=== PATIENT | male | born 1955 | race Two or more races ===

== ENCOUNTER 2024-02-10 03:59 | Emergency (ER) | payer MEDICARE, OTHER ==
[~2024-02-10] VITALS: Ht 167.6 cm; Wt 79.4 kg
[~2024-02-10 03:59] MED LIST: CEFT400V IV; NEOM1OIN15 TP; ONDA4TAB5 PO
[2024-02-10 04:13] VITALS: BP 121/62; TEMP 98; O2SAT 95
[2024-02-11] MEDS ORDERED: DOCU100C36 PO (02:17)
[2024-02-11] MEDS ORDERED: SIME80TA15 PO (02:17)
[2024-02-11] MEDS ORDERED: MIRT-73 PO (02:20)
[2024-02-11] MEDS ORDERED: OMEP20TA5 PO (02:24)
[2024-02-11] MEDS ORDERED: OMEP20CA15 PO (02:24)
[2024-02-11] MEDS ORDERED: INSU100V27 SQ (08:18)
[2024-02-11] MEDS ORDERED: BISA10SU11 RC (08:18)
[2024-02-11] MEDS ORDERED: ONDA-97 PO (08:18)
[2024-02-11] MEDS ORDERED: GABA-532 PO (08:18)
[2024-02-11] MEDS ORDERED: FOLI0.8T23 PO (08:18)
[2024-02-11] MEDS ORDERED: NA P133E RC (08:18)
[2024-02-11] MEDS ORDERED: IPRA3AMP23 IH (08:18)
[2024-02-11] MEDS ORDERED: AMIO200T5 PO (08:18)
[2024-02-11] MEDS ORDERED: ACET-73 PO (08:18)
== END 2024-02-10 06:57 ==
LOC: ER 04:01
DX: E11.649 Type 2 diabetes mellitus with hypoglycemia without coma (principal); E11.22 Type 2 diabetes mellitus with diabetic chronic kidney disease; N18.6 End stage renal disease; M46.20 Osteomyelitis of vertebra, site unspecified; Z99.2 Dependence on renal dialysis
CPT/HCPCS: 82962-TC

== ENCOUNTER 2024-02-10 19:34 | Inpatient (IN) | payer MEDICARE, OTHER ==
[~2024-02-10] VITALS: Ht 167.6 cm; Wt 70.8 kg
[2024-02-10] MEDS ORDERED: ONDANSETRON HCL/PF 4 MG/2 ML VIAL ONE (20:33)
[2024-02-10 20:36] LABS: BASOPHILS # (AUTO) 0.1 K/uL (0.0-0.2); BASOPHILS % (AUTO) 0.9 % (0.0-2.0); EOSINOPHILS # (AUTO) 0.8 K/uL (0.0-0.7); EOSINOPHILS % (AUTO) 8.3 % (0.0-6.0); HEMATOCRIT 23 % (39-51); HEMOGLOBIN 7.8 g/dL (13.5-17.5); LYMPHOCYTES % (AUTO) 10.6 % (20.0-44.0); MEAN CORPUSCULAR HEMOGLOBIN 30 PG (26.0-33.0); MEAN CORPUSCULAR HGB CONC 34 g/dl (31.0-36.0); MEAN CORPUSCULAR VOLUME 91 fL (80-96); MONOCYTES # (AUTO) 1.1 K/uL (0.1-1.30); MONOCYTES % (AUTO) 11.5 % (2.0-12.0); NEUTROPHILS # (AUTO) 6.8 K/uL (1.8-8.9); NEUTROPHILS % (AUTO) 68.7 % (43.0-81.0); PLATELET COUNT (AUTO) 400 K/uL (150-450); RED BLOOD CELL COUNT(AUTO) 2.56 MIL/uL (4.5-6.0); RED CELL DISTRIBUTION WIDTH 14.8 % (11.5-15.0); WHITE BLOOD COUNT (AUTO) 9.9 K/uL (4.3-11.0)
[2024-02-10 20:43] LABS: CREATININE 2.8 mg/dL (0.6-1.3)
[2024-02-10 20:47] LABS: INR 1.14 (0.91-1.10); PARTIAL THROMBOPLASTIN TIME 30.3 SEC (24.3-34.3); PROTHROMBIN TIME 11.6 SECS (9.2-11.1)
[2024-02-10 20:49] LABS: ALBUMIN 2.2 g/dL (3.4-5.0); BILIRUBIN,DIRECT 0.1 mg/dL (0.0-0.2); BILIRUBIN,TOTAL 0.4 mg/dL (0.2-1.0); TOTAL PROTEIN, SERUM 7.8 g/dL (6.4-8.2)
[2024-02-10] MEDS: ONDANSETRON HCL/PF 4 MG/2 ML VIAL IVP ONE (21:08)
[2024-02-10] MEDS ORDERED: PIPERACI/TAZO 3.375GM/D5W 50ML PB IV ONE (21:40)
[2024-02-10] MEDS: PIPERACILLIN /TAZOBACTAM 3.375 G in IV D5W 50 ML IV ONE (21:46)
[2024-02-10] MEDS ORDERED: POTASSIUM CHLORIDE 20 MEQ POWDER PACKET ONE (23:27)
[2024-02-10] MEDS: POTASSIUM CHLORIDE 20 MEQ TAB.PRT.SR PO ONE (23:33)
[2024-02-11 00:30] VITALS: BP 137/71; TEMP 98.2; O2SAT 95
[2024-02-11] MEDS ORDERED: METRONIDAZOLE 500MG/ NS 100ML 100 ML IV ONE (01:42)
[2024-02-11] MEDS: METRONIDAZOLE 500MG/ NS 100ML 500 MG in PREMIX 1 EA IV SCH (01:47)
[2024-02-11] MEDS ORDERED: SIME80TA15 PO (02:17)
[2024-02-11] MEDS ORDERED: DOCU100C36 PO (02:17)
[2024-02-11] MEDS ORDERED: MIRT-73 PO (02:20)
[2024-02-11] MEDS ORDERED: OMEP20TA5 PO (02:24)
[2024-02-11] MEDS ORDERED: OMEP20CA15 PO (02:24)
[2024-02-11 07:30] VITALS: BP 121/55; TEMP 99.1; O2SAT 93
[2024-02-11] MEDS: PIPERACILLIN /TAZOBACTAM 2.25 G in IV D5W 50 ML IV SCH (07:48)
[2024-02-11] MEDS ORDERED: ONDA-97 PO (08:18)
[2024-02-11] MEDS ORDERED: NA P133E RC (08:18)
[2024-02-11] MEDS ORDERED: FOLI0.8T23 PO (08:18)
[2024-02-11] MEDS ORDERED: ACET-73 PO (08:18)
[2024-02-11] MEDS ORDERED: INSU100V27 SQ (08:18)
[2024-02-11] MEDS ORDERED: BISA10SU11 RC (08:18)
[2024-02-11] MEDS ORDERED: AMIO200T5 PO (08:18)
[2024-02-11] MEDS ORDERED: GABA-532 PO (08:18)
[2024-02-11] MEDS ORDERED: IPRA3AMP23 IH (08:18)
[2024-02-11] MEDS ORDERED: SIMETHICONE 80 MG TAB.CHEW PO PRN (08:30)
[2024-02-11] MEDS ORDERED: MIRTAZAPINE SOLUTAB 15 MG/UDTABLET TAB.RAPDIS PO PRN (08:30)
[2024-02-11] MEDS ORDERED: BISACODYL SUPP (10 MG) 10 MG/SUPP.RECT SUPP.RECT RC PRN (08:30)
[2024-02-11] MEDS ORDERED: NA PHOS,M-B/NA PHOS,DI-BA 1 EA ENEMA RC PRN (08:30)
[2024-02-11] MEDS ORDERED: BACI/NEOM/POLY B OINT PKT 1 UDPKT PACKET TP SCH (09:00)
[2024-02-11] MEDS: GABAPENTIN 100 MG CAPSULE PO SCH (09:12)
[2024-02-11] MEDS: VIT B CMPLX 3/FA/VIT C/BIOTIN 1 TAB TABLET PO SCH (09:12)
[2024-02-11] MEDS: DOCUSATE SODIUM 100 MG CAPSULE PO SCH (09:13)
[2024-02-11] MEDS: AMIODARONE HCL 200 MG TABLET PO SCH (09:13)
[2024-02-11] MEDS: NEOMY SULF/BACITRAC ZN/POLY 15 GM TUBE TP SCH (09:55)
[2024-02-11] MEDS: VANCOMYCIN 1 GM in IV D5W 250ml IV ONE (11:57)
[2024-02-11 12:35] LABS: C-REACTIVE PROTEIN 16.27 mg/dL (0.0-0.30)
[2024-02-11] MEDS: VANCOMYCIN 750 MG in IV D5W 250 ML IV ONE (12:47)
[2024-02-11 12:54] LABS: ALBUMIN 2.1 g/dL (3.4-5.0); BILIRUBIN,TOTAL 0.4 mg/dL (0.2-1.0); CREATININE 3.3 mg/dL (0.6-1.3); MAGNESIUM 2.1 mg/dL (1.8-2.4); PHOSPHORUS 3.9 mg/dL (2.5-4.9); TOTAL PROTEIN, SERUM 7.9 g/dL (6.4-8.2)
[2024-02-11 13:32] LABS: BASOPHILS # (AUTO) 0.1 K/uL (0.0-0.2); BASOPHILS % (AUTO) 1.3 % (0.0-2.0); EOSINOPHILS # (AUTO) 0.8 K/uL (0.0-0.7); EOSINOPHILS % (AUTO) 7.3 % (0.0-6.0); HEMATOCRIT 22 % (39-51); HEMOGLOBIN 7.3 g/dL (13.5-17.5); LYMPHOCYTES # (AUTO) 1.6 K/uL (0.8-4.8); LYMPHOCYTES % (AUTO) 14.8 % (20.0-44.0); MEAN CORPUSCULAR HEMOGLOBIN 30 PG (26.0-33.0); MEAN CORPUSCULAR HGB CONC 34 g/dl (31.0-36.0); MEAN CORPUSCULAR VOLUME 89 fL (80-96); MONOCYTES # (AUTO) 1.2 K/uL (0.1-1.30); MONOCYTES % (AUTO) 11.2 % (2.0-12.0); NEUTROPHILS # (AUTO) 7.2 K/uL (1.8-8.9); NEUTROPHILS % (AUTO) 65.4 % (43.0-81.0); PLATELET COUNT (AUTO) 406 K/uL (150-450); RED BLOOD CELL COUNT(AUTO) 2.43 MIL/uL (4.5-6.0); RED CELL DISTRIBUTION WIDTH 15.1 % (11.5-15.0)
[2024-02-11] MEDS: ZOSYN IVPB 3.375 G in IV D5W 50ml IV SCH (13:55)
[2024-02-11 16:00] VITALS: BP 120/68; TEMP 98.6; O2SAT 96
[2024-02-11] MEDS: ALBUMIN 25% 25 GM in PREMIX 1 EA IV PRN (16:49)
[2024-02-11 19:55] LABS: HIV-1 p24 ANTIGEN NON REACTIVE (NONREACTIVE); HIV-1/2 ANTIBODY NON REACTIVE (NONREACTIVE)
[2024-02-11 20:00] VITALS: BP 113/85; TEMP 97.9; O2SAT 94
[2024-02-12] VITALS (8 sets, daily range): BP systolic 105–125; BP diastolic 52–62; TEMP 97.5–99; O2SAT 96–99
[2024-02-12] MEDS: Z GUARD REMEDY 4 OZ OINT TP PRN (09:08)
[2024-02-12 09:13] LABS: BASOPHILS # (AUTO) 0.1 K/uL (0.0-0.2); BASOPHILS % (AUTO) 0.8 % (0.0-2.0); EOSINOPHILS % (AUTO) 11.9 % (0.0-6.0); LYMPHOCYTES # (AUTO) 1.3 K/uL (0.8-4.8); LYMPHOCYTES % (AUTO) 15.5 % (20.0-44.0); MEAN CORPUSCULAR HEMOGLOBIN 30 PG (26.0-33.0); MEAN CORPUSCULAR HGB CONC 34 g/dl (31.0-36.0); MEAN CORPUSCULAR VOLUME 89 fL (80-96); MONOCYTES % (AUTO) 11.8 % (2.0-12.0); NEUTROPHILS # (AUTO) 4.9 K/uL (1.8-8.9); PLATELET COUNT (AUTO) 338 K/uL (150-450); RED BLOOD CELL COUNT(AUTO) 2.23 MIL/uL (4.5-6.0); WHITE BLOOD COUNT (AUTO) 8.1 K/uL (4.3-11.0)
[2024-02-12 09:34] LABS: CALCIUM, SERUM 8.8 mg/dL (8.5-10.1); CREATININE 2.1 mg/dL (0.6-1.3); POTASSIUM 3.4 mmol/L (3.5-5.1)
[2024-02-12 10:17] LABS: HEMATOCRIT 20 % (39-51); HEMOGLOBIN 6.8 g/dL (13.5-17.5)
[2024-02-12] MEDS: POTASSIUM CHLORIDE 20 MEQ TAB.PRT.SR PO SCH (10:37)
[2024-02-12 11:07] LABS: OCCULT BLOOD STOOL NEGATIVE (NEGATIVE)
[2024-02-12 11:18] LABS: EOSINOPHILS % (MANUAL) 9 % (0-4); LYMPHOCYTES % (MANUAL) 17 % (16-48); MONOCYTES % (MANUAL) 7 % (0-11.0); NEUTROPHILS % (MANUAL) 67 (42-76)
[2024-02-12 11:19] LABS: ANISOCYTOSIS 1+; PLATELET ESTIMATE ADEQUATE
[2024-02-12] MEDS ORDERED: VANCOMYCIN 750 MG in IV D5W 250 ML IV SCH (12:00)
[2024-02-12 13:55] LABS: THYROID STIMULATING HORMONE 2.57 uIU/mL (0.358-3.74)
[2024-02-12 22:17] LABS: BASOPHILS # (AUTO) 0.1 K/uL (0.0-0.2); BASOPHILS % (AUTO) 0.9 % (0.0-2.0); EOSINOPHILS # (AUTO) 1.1 K/uL (0.0-0.7); EOSINOPHILS % (AUTO) 12.4 % (0.0-6.0); HEMATOCRIT 25 % (39-51); HEMOGLOBIN 8.3 g/dL (13.5-17.5); LYMPHOCYTES # (AUTO) 1.7 K/uL (0.8-4.8); LYMPHOCYTES % (AUTO) 19.2 % (20.0-44.0); MEAN CORPUSCULAR HEMOGLOBIN 30 PG (26.0-33.0); MEAN CORPUSCULAR HGB CONC 34 g/dl (31.0-36.0); MEAN CORPUSCULAR VOLUME 89 fL (80-96); MONOCYTES # (AUTO) 1.2 K/uL (0.1-1.30); MONOCYTES % (AUTO) 13.6 % (2.0-12.0); NEUTROPHILS # (AUTO) 4.8 K/uL (1.8-8.9); NEUTROPHILS % (AUTO) 53.9 % (43.0-81.0); PLATELET COUNT (AUTO) 323 K/uL (150-450); RED BLOOD CELL COUNT(AUTO) 2.76 MIL/uL (4.5-6.0); RED CELL DISTRIBUTION WIDTH 14.8 % (11.5-15.0); WHITE BLOOD COUNT (AUTO) 8.9 K/uL (4.3-11.0)
[2024-02-13] MEDS: ONDANSETRON HCL/PF 4 MG/2 ML VIAL IVP PRN (00:38)
[2024-02-13 01:28] LABS: OCCULT BLOOD STOOL NEGATIVE (NEGATIVE)
[2024-02-13 06:07] LABS: HEPATITIS B SURFACE AB Non Reactive (.)
[2024-02-13 07:00] VITALS: BP 155/69; TEMP 97.5; O2SAT 97
[2024-02-13 11:07] LABS: FOLIC ACID 19.9 ng/mL (>3.0)
[2024-02-13] MEDS: ZOSYN IVPB 2.25 G in IV D5W 50ml IV SCH (12:47)
[2024-02-13 16:00] VITALS: BP 143/61; TEMP 98.7; O2SAT 96
[2024-02-13 20:10] VITALS: BP 147/62; TEMP 98.4; O2SAT 97
[2024-02-13] MEDS: ACETAMINOPHEN 325 MG TABLET PO PRN (20:20)
[2024-02-14 08:00] VITALS: BP 141/73; TEMP 98.8; O2SAT 96
[2024-02-14] MEDS: PANTOPRAZOLE 40 MG TABLET.DR PO SCH (09:35)
[2024-02-14 11:03] LABS: BASOPHILS # (AUTO) 0.1 K/uL (0.0-0.2); BASOPHILS % (AUTO) 0.7 % (0.0-2.0); EOSINOPHILS # (AUTO) 1.4 K/uL (0.0-0.7); EOSINOPHILS % (AUTO) 13.9 % (0.0-6.0); HEMATOCRIT 25 % (39-51); HEMOGLOBIN 8.7 g/dL (13.5-17.5); LYMPHOCYTES # (AUTO) 1.3 K/uL (0.8-4.8); LYMPHOCYTES % (AUTO) 12.6 % (20.0-44.0); MEAN CORPUSCULAR HEMOGLOBIN 30 PG (26.0-33.0); MEAN CORPUSCULAR HGB CONC 34 g/dl (31.0-36.0); MEAN CORPUSCULAR VOLUME 88 fL (80-96); MONOCYTES % (AUTO) 9.3 % (2.0-12.0); NEUTROPHILS # (AUTO) 6.5 K/uL (1.8-8.9); NEUTROPHILS % (AUTO) 63.5 % (43.0-81.0); PLATELET COUNT (AUTO) 339 K/uL (150-450); RED BLOOD CELL COUNT(AUTO) 2.87 MIL/uL (4.5-6.0); WHITE BLOOD COUNT (AUTO) 10.3 K/uL (4.3-11.0)
[2024-02-14 11:17] LABS: CALCIUM, SERUM 9.5 mg/dL (8.5-10.1); CREATININE 3.4 mg/dL (0.6-1.3); MAGNESIUM 2.1 mg/dL (1.8-2.4); PHOSPHORUS 3.3 mg/dL (2.5-4.9)
[2024-02-14] MEDS: PIPERACILLIN /TAZOBACTAM 2.25 G in IV D5W 50 ML IV SCH (12:23)
[2024-02-14 16:00] VITALS: BP 138/62; TEMP 99.7; O2SAT 98
[2024-02-14 20:00] VITALS: BP 147/63; TEMP 98.6; O2SAT 92
[2024-02-14] MEDS ORDERED: MUPIROCIN OINT 2% 22 GM TUBE ONE (21:38)
[2024-02-15 07:11] LABS: CALCIUM, SERUM 9.4 mg/dL (8.5-10.1); CREATININE 4.2 mg/dL (0.6-1.3)
[2024-02-15 08:00] VITALS: BP 161/77; TEMP 97.9; O2SAT 96
[2024-02-15] MEDS: MUPIROCIN OINT 2% 22 GM TUBE NS SCH (08:47)
[2024-02-15 16:00] VITALS: BP 128/65; TEMP 98; O2SAT 97
[2024-02-15 20:00] VITALS: BP 136/81; TEMP 97.5; O2SAT 93
[2024-02-16 06:59] LABS: CALCIUM, SERUM 9.7 mg/dL (8.5-10.1); CREATININE 2.6 mg/dL (0.6-1.3); POTASSIUM 3.5 mmol/L (3.5-5.1)
[2024-02-16 08:00] VITALS: BP 134/67; TEMP 98.4; O2SAT 100
[2024-02-16] MEDS: VANCOMYCIN 500 MG in IV D5W 100 ML IV PRN (09:04)
[2024-02-16 16:00] VITALS: BP 148/60; TEMP 98.6; O2SAT 100
[2024-02-17 06:53] LABS: BASOPHILS # (AUTO) 0.1 K/uL (0.0-0.2); EOSINOPHILS # (AUTO) 1.2 K/uL (0.0-0.7); EOSINOPHILS % (AUTO) 12.8 % (0.0-6.0); HEMATOCRIT 27 % (39-51); HEMOGLOBIN 9.1 g/dL (13.5-17.5); LYMPHOCYTES # (AUTO) 2.1 K/uL (0.8-4.8); LYMPHOCYTES % (AUTO) 21.8 % (20.0-44.0); MEAN CORPUSCULAR HEMOGLOBIN 31 PG (26.0-33.0); MEAN CORPUSCULAR HGB CONC 34 g/dl (31.0-36.0); MEAN CORPUSCULAR VOLUME 89 fL (80-96); MONOCYTES % (AUTO) 10.1 % (2.0-12.0); NEUTROPHILS # (AUTO) 5.2 K/uL (1.8-8.9); NEUTROPHILS % (AUTO) 54.3 % (43.0-81.0); PLATELET COUNT (AUTO) 319 K/uL (150-450); RED BLOOD CELL COUNT(AUTO) 2.99 MIL/uL (4.5-6.0); RED CELL DISTRIBUTION WIDTH 14.9 % (11.5-15.0); WHITE BLOOD COUNT (AUTO) 9.6 K/uL (4.3-11.0)
[2024-02-17 07:11] LABS: CALCIUM, SERUM 9.1 mg/dL (8.5-10.1); CREATININE 3.6 mg/dL (0.6-1.3); POTASSIUM 3.2 mmol/L (3.5-5.1)
[2024-02-17] MEDS: HYDROCODONE/APAP 5/325MG TABLET PO PRN (10:04)
[2024-02-17 16:00] VITALS: BP 140/66; TEMP 97.5; O2SAT 100
[2024-02-17 20:00] VITALS: BP 147/73; TEMP 98.4; O2SAT 98
[2024-02-18] MEDS ORDERED: cetrizine 10 MG TABLET PO PRN (08:30)
[2024-02-18 20:00] VITALS: BP 119/72; TEMP 98.4; O2SAT 94
[2024-02-19 07:30] VITALS: BP 153/67; TEMP 98.2; O2SAT 96
[2024-02-19 16:07] VITALS: BP 137/62; TEMP 98.1; O2SAT 97
== END 2024-02-19 18:23 | DRG 371 ==
LOC: ER 19:37 → TELE 23:17 → MED 23:30
PROVIDERS: ADMIT Nurse Practitioner Family; ATTEND Nurse Practitioner Acute Care
PROC: 5A1D70Z Performance of Urinary Filtration, Intermittent, Less than 6 Hours Per Day (ICD-10-PCS; 2024-02-11)
PROC: 30233N1 Transfusion of Nonautologous Red Blood Cells into Peripheral Vein, Percutaneous Approach (ICD-10-PCS; principal; 2024-02-12)
DX: A04.9 Bacterial intestinal infection, unspecified (principal); G92.8 Other toxic encephalopathy; K68.12 Psoas muscle abscess; N18.6 End stage renal disease; I12.0 Hypertensive chronic kidney disease with stage 5 chronic kidney disease or end stage renal disease; M46.26 Osteomyelitis of vertebra, lumbar region; E46 Unspecified protein-calorie malnutrition; K86.1 Other chronic pancreatitis; M46.46 Discitis, unspecified, lumbar region; E11.69 Type 2 diabetes mellitus with other specified complication; Z99.2 Dependence on renal dialysis; E87.6 Hypokalemia; E11.22 Type 2 diabetes mellitus with diabetic chronic kidney disease; N40.0 Benign prostatic hyperplasia without lower urinary tract symptoms; R62.7 Adult failure to thrive; Z79.4 Long term (current) use of insulin; Z79.51 Long term (current) use of inhaled steroids; Z79.899 Other long term (current) drug therapy; D63.8 Anemia in other chronic diseases classified elsewhere; E78.5 Hyperlipidemia, unspecified; G89.29 Other chronic pain; E88.09 Other disorders of plasma-protein metabolism, not elsewhere classified; I48.91 Unspecified atrial fibrillation; K80.20 Calculus of gallbladder without cholecystitis without obstruction; M47.819 Spondylosis without myelopathy or radiculopathy, site unspecified; M48.04 Spinal stenosis, thoracic region; M48.02 Spinal stenosis, cervical region; M60.9 Myositis, unspecified; M89.8X9 Other specified disorders of bone, unspecified site; Z78.1 Physical restraint status; Z79.01 Long term (current) use of anticoagulants; Z86.61 Personal history of infections of the central nervous system; Z86.73 Personal history of transient ischemic attack (TIA), and cerebral infarction without residual deficits; Z22.322 Carrier or suspected carrier of Methicillin resistant Staphylococcus aureus
CPT/HCPCS: 36415; 70450-TC; 71045-TC; 72141-TC; 72146-TC; 72148-TC; 80048-TC; 80053-TC; 80061-TC; 80076-TC; 80202-TC; 82272-TC; 82607-TC; 82962-TC; 83690-TC; 83735-TC; 83921; 84100-TC; 84425; 84443-TC; 85025-TC; 85652-TC; 85730-TC; 86140-TC; 86706; 86803; 86850-TC; 87040-TC; 87081-TC; 87340; 87806; 89055; 90935-TC; 93307-TC; A4216; A4223; G0378; J2405; J2543; J3370; J3371; J7030; J7050; J7060; J7070; P9016; P9047

== ENCOUNTER 2024-03-06 23:44 | Inpatient (IN) | payer MEDICARE, OTHER ==
[~2024-03-06] VITALS: Ht 152.4 cm; Wt 55.8 kg
[~2024-03-06 23:44] MED LIST changes: +ACET-73 PO; +AMIO200T5 PO; +BISA10SU11 RC; +DOCU100C36 PO; +FOLI0.8T23 PO; +GABA-532 PO; +INSU100V27 SQ; +IPRA3AMP23 IH; +MIRT-73 PO; +NA P133E RC; +OMEP20TA5 PO; +ONDA-97 PO; +SIME80TA15 PO
[2024-03-07] VITALS (8 sets, daily range): BP systolic 124–162; BP diastolic 83–98; TEMP 97.5–99.1; O2SAT 93–98
[2024-03-07] MEDS ORDERED: MAG HYDROX/AL HYDROX/SIMETH 30 ML UDC PO PRN (02:30)
[2024-03-07] MEDS ORDERED: ZOLPIDEM TARTRATE 5 MG TABLET PO PRN (02:30)
[2024-03-07] MEDS ORDERED: HYDROCODONE/APAP 5/325MG TABLET PO PRN (02:30)
[2024-03-07] MEDS ORDERED: ALBUTEROL FS 2.5 MG/3 ML VIAL.NEB NEB PRN ×2 (02:30→15:30)
[2024-03-07] MEDS ORDERED: IPRATROPIUM NEB FS 0.5 MG/2.5 ML AMPUL.NEB NEB PRN ×2 (02:30→15:30)
[2024-03-07] MEDS ORDERED: MAGNESIUM HYDROXIDE 30 ML UDC PO PRN (02:30)
[2024-03-07] MEDS: PANTOPRAZOLE 40 MG TABLET.DR PO SCH (07:30)
[2024-03-07] MEDS ORDERED: PANT40TA2 PO (07:38)
[2024-03-07] MEDS ORDERED: CEFE2VIA3 IV (07:38)
[2024-03-07] MEDS ORDERED: CETI10TA14 PO (07:38)
[2024-03-07] MEDS ORDERED: HYDR-4303 PO (07:38)
[2024-03-07] MEDS ORDERED: CHOL100043 PO (07:38)
[2024-03-07] MEDS ORDERED: ACET-868 PO (07:38)
[2024-03-07] MEDS ORDERED: ASPI-1169 PO (07:38)
[2024-03-07] MEDS ORDERED: ATOR80TA PO (07:38)
[2024-03-07] MEDS ORDERED: VANC500V IV (07:38)
[2024-03-07 09:32] LABS: BASOPHILS # (AUTO) 0.1 K/uL (0.0-0.2); BASOPHILS % (AUTO) 0.9 % (0.0-2.0); EOSINOPHILS # (AUTO) 1.1 K/uL (0.0-0.7); EOSINOPHILS % (AUTO) 13.1 % (0.0-6.0); HEMATOCRIT 36 % (39-51); HEMOGLOBIN 11.7 g/dL (13.5-17.5); LYMPHOCYTES # (AUTO) 1.5 K/uL (0.8-4.8); LYMPHOCYTES % (AUTO) 18.2 % (20.0-44.0); MEAN CORPUSCULAR HEMOGLOBIN 31 PG (26.0-33.0); MEAN CORPUSCULAR HGB CONC 33 g/dl (31.0-36.0); MEAN CORPUSCULAR VOLUME 94 fL (80-96); MONOCYTES # (AUTO) 0.6 K/uL (0.1-1.30); MONOCYTES % (AUTO) 6.9 % (2.0-12.0); NEUTROPHILS # (AUTO) 5.1 K/uL (1.8-8.9); NEUTROPHILS % (AUTO) 60.9 % (43.0-81.0); PLATELET COUNT (AUTO) 434 K/uL (150-450); RED BLOOD CELL COUNT(AUTO) 3.79 MIL/uL (4.5-6.0); RED CELL DISTRIBUTION WIDTH 18.3 % (11.5-15.0); WHITE BLOOD COUNT (AUTO) 8.3 K/uL (4.3-11.0)
[2024-03-07 09:51] LABS: CALCIUM, SERUM 9.4 mg/dL (8.5-10.1); CREATININE 3.1 mg/dL (0.6-1.3); POTASSIUM 4.1 mmol/L (3.5-5.1)
[2024-03-07] MEDS ORDERED: ANESTHESIA TRAY IN PYXIS 1 EA TRAY MC ONE ×2 (10:14→12:25)
[2024-03-07] MEDS ORDERED: HEPARIN SODIUM, PORCINE 1,000 UNIT/ML VIAL ONE (10:14)
[2024-03-07] MEDS ORDERED: LIDOCAINE 1% INJ 50 ML MDV IJ ONE (10:15)
[2024-03-07 10:33] LABS: INR 1.15 (0.91-1.10); PARTIAL THROMBOPLASTIN TIME 32.1 SEC (24.3-34.3); PROTHROMBIN TIME 12.1 SECS (9.2-11.1)
[2024-03-07] MEDS ORDERED: DEXTROSE 50%-WATER 50 ML DISP.SYRIN IV PRN (13:30)
[2024-03-07 13:53] LABS: APPEARANCE,URINE CLEAR (CLEAR); BILIRUBIN,URINE NEGATIVE (NEGATIVE); BLOOD, URINE 2+ Ery/uL (NEGATIVE); COLOR,URINE YELLOW (YELLOW); KETONES,URINE NEGATIVE (NEGATIVE); LEUKOCYTE ESTERASE ,URINE 2+ (NEGATIVE); NITRITE, URINE NEGATIVE (NEGATIVE); PH,URINE 8.5 (5.0-8.0); PROTEIN,URINE 2+ mg/dl (NEGATIVE); UGLUCOSE NEGATIVE (NEGATIVE); UROBILINOGEN,URINE 0.2 EU/dL (0.2)
[2024-03-07 14:04] LABS: ADD URINE CULTURE YES; BACTERIA,URINE Many /HPF (None Seen); SQUAMOUS EPITHELIAL CELL,UR Rare /HPF (None Seen); WBC,URINE TOO NUMEROUS TO COUN /HPF (0-3)
[2024-03-07] MEDS ORDERED: SIMETHICONE 80 MG TAB.CHEW PO PRN (15:00)
[2024-03-07] MEDS ORDERED: CEFEPIME 2 GM VIAL IV SCH (15:00)
[2024-03-07] MEDS ORDERED: Medication Not On Formulary EA (Ipratropium/Albuterol Sulfate (Duoneb 2.5-0.5 Mg/3 Ml So IH PRN (15:00)
[2024-03-07] MEDS: VANCOMYCIN 1 GM in IV D5W 250ml IV ONE (15:09)
[2024-03-07] MEDS: BLOOD SUGAR DIAGNOSTIC 1 EACH STRIP IN SCH (16:58)
[2024-03-07] MEDS: INSULIN REGULAR, HUMAN 100 UNIT/ML 3 ML VIAL SQ PRN (17:02)
[2024-03-07] MEDS: ATORVASTATIN 40 MG TABLET PO SCH (21:39)
[2024-03-07] MEDS: MIRTAZAPINE SOLUTAB 15 MG/UDTABLET TAB.RAPDIS PO SCH (21:39)
[2024-03-07] MEDS: HEPARIN SODIUM, PORCINE 5000 UNITS/1 ML VIAL SQ SCH (21:40)
[2024-03-08] MEDS: Z GUARD REMEDY 4 OZ OINT TP PRN (05:51)
[2024-03-08] MEDS ORDERED: VANCOMYCIN POST DIALYSIS 500MG IV PRN (06:00)
[2024-03-08 06:32] LABS: PHOSPHORUS 2.2 mg/dL (2.5-4.9); POTASSIUM 3.3 mmol/L (3.5-5.1)
[2024-03-08 06:37] LABS: BASOPHILS # (AUTO) 0.1 K/uL (0.0-0.2); BASOPHILS % (AUTO) 0.7 % (0.0-2.0); EOSINOPHILS % (AUTO) 0.3 % (0.0-6.0); HEMATOCRIT 31 % (39-51); HEMOGLOBIN 10.3 g/dL (13.5-17.5); LYMPHOCYTES # (AUTO) 1.7 K/uL (0.8-4.8); MEAN CORPUSCULAR HEMOGLOBIN 31 PG (26.0-33.0); MEAN CORPUSCULAR HGB CONC 34 g/dl (31.0-36.0); MEAN CORPUSCULAR VOLUME 94 fL (80-96); MONOCYTES # (AUTO) 0.8 K/uL (0.1-1.30); MONOCYTES % (AUTO) 9.1 % (2.0-12.0); NEUTROPHILS % (AUTO) 69.9 % (43.0-81.0); PLATELET COUNT (AUTO) 391 K/uL (150-450); RED BLOOD CELL COUNT(AUTO) 3.28 MIL/uL (4.5-6.0); RED CELL DISTRIBUTION WIDTH 18.1 % (11.5-15.0); WHITE BLOOD COUNT (AUTO) 8.6 K/uL (4.3-11.0)
[2024-03-08 08:00] VITALS: BP 160/72; TEMP 99.3; O2SAT 99
[2024-03-08] MEDS: DOCUSATE SODIUM 100 MG CAPSULE PO SCH (08:53)
[2024-03-08] MEDS: CHOLECALCIFEROL 1,000 UNIT TABLET (VIT D3) PO SCH (08:53)
[2024-03-08] MEDS: ASPIRIN 81 MG TAB.CHEW PO SCH (08:53)
[2024-03-08] MEDS: AMIODARONE HCL 200 MG TABLET PO SCH (08:53)
[2024-03-08] MEDS: POTASSIUM CHLORIDE 20 MEQ TAB.PRT.SR PO SCH (09:53)
[2024-03-08 16:00] VITALS: BP 135/69; TEMP 99.4; O2SAT 99
[2024-03-08] MEDS: K PHOS NEUTRAL 250 MG TABLET PO ONE (16:11)
[2024-03-08 20:00] VITALS: BP 151/71; TEMP 98.8; O2SAT 100
[2024-03-08 20:33] VITALS: BP 151/71; TEMP 98.8; O2SAT 100
[2024-03-08] MEDS: CEFEPIME 2 GM in IV D5W 100 ML IV SCH (21:08)
[2024-03-09 07:01] LABS: BASOPHILS # (AUTO) 0.1 K/uL (0.0-0.2); BASOPHILS % (AUTO) 1.1 % (0.0-2.0); EOSINOPHILS # (AUTO) 0.8 K/uL (0.0-0.7); EOSINOPHILS % (AUTO) 8.9 % (0.0-6.0); HEMATOCRIT 28 % (39-51); HEMOGLOBIN 9.1 g/dL (13.5-17.5); LYMPHOCYTES # (AUTO) 1.9 K/uL (0.8-4.8); LYMPHOCYTES % (AUTO) 20.9 % (20.0-44.0); MEAN CORPUSCULAR HEMOGLOBIN 31 PG (26.0-33.0); MEAN CORPUSCULAR HGB CONC 33 g/dl (31.0-36.0); MEAN CORPUSCULAR VOLUME 93 fL (80-96); MONOCYTES # (AUTO) 0.8 K/uL (0.1-1.30); MONOCYTES % (AUTO) 9.5 % (2.0-12.0); NEUTROPHILS # (AUTO) 5.3 K/uL (1.8-8.9); NEUTROPHILS % (AUTO) 59.6 % (43.0-81.0); PLATELET COUNT (AUTO) 389 K/uL (150-450); RED BLOOD CELL COUNT(AUTO) 2.97 MIL/uL (4.5-6.0); WHITE BLOOD COUNT (AUTO) 8.9 K/uL (4.3-11.0)
[2024-03-09 07:50] LABS: CALCIUM, SERUM 9.2 mg/dL (8.5-10.1); CREATININE 3.1 mg/dL (0.6-1.3); MAGNESIUM 2.1 mg/dL (1.8-2.4); PHOSPHORUS 3.2 mg/dL (2.5-4.9); POTASSIUM 3.2 mmol/L (3.5-5.1)
[2024-03-09 08:00] VITALS: BP 160/75; TEMP 98.6; O2SAT 100
[2024-03-09] MEDS: GABAPENTIN 100 MG CAPSULE PO SCH (10:17)
[2024-03-09] MEDS: cetrizine 10 MG TABLET PO PRN (10:23)
[2024-03-09 10:33] LABS: THYROID STIMULATING HORMONE 1.94 uIU/mL (0.358-3.74)
[2024-03-09] MEDS: ONDANSETRON HCL/PF 4 MG/2 ML VIAL IVP PRN (11:59)
[2024-03-09 20:00] VITALS: BP 138/70; TEMP 98.5; O2SAT 100
[2024-03-10 06:47] LABS: CALCIUM, SERUM 9.4 mg/dL (8.5-10.1); CREATININE 2.4 mg/dL (0.6-1.3); POTASSIUM 4.2 mmol/L (3.5-5.1)
[2024-03-10 08:00] VITALS: BP 158/92; TEMP 98.1; O2SAT 100
[2024-03-10 16:00] VITALS: BP 148/79; TEMP 98.8; O2SAT 100
[2024-03-10 20:00] VITALS: BP 155/75; TEMP 97.9; O2SAT 99
[2024-03-11 07:59] LABS: CALCIUM, SERUM 9.5 mg/dL (8.5-10.1); CREATININE 3.8 mg/dL (0.6-1.3); POTASSIUM 3.7 mmol/L (3.5-5.1)
[2024-03-11 08:00] VITALS: BP 153/88; TEMP 98.1; O2SAT 100
[2024-03-11 20:00] VITALS: BP 124/62; TEMP 98.2; O2SAT 100
[2024-03-12 07:04] LABS: CALCIUM, SERUM 8.9 mg/dL (8.5-10.1); CREATININE 2.5 mg/dL (0.6-1.3); POTASSIUM 3.2 mmol/L (3.5-5.1)
[2024-03-12 08:30] VITALS: BP 146/69; TEMP 98.2; O2SAT 100
[2024-03-12 11:07] LABS: METHYLMALONIC ACID 318 nmol/L (0-378)
[2024-03-12] MEDS: POTASSIUM CHLORIDE 20 MEQ TAB.PRT.SR PO SCH (12:28)
[2024-03-12] MEDS: ACETAMINOPHEN 325 MG TABLET PO PRN (15:22)
[2024-03-12 16:00] VITALS: BP 124/63; TEMP 98.4; O2SAT 100
[2024-03-12 20:00] VITALS: BP 141/72; TEMP 98.2; O2SAT 100
[2024-03-12] MEDS ORDERED: DOSING PER PHARMACY-AMIKACI IV XX PRN (21:30)
[2024-03-13 05:32] VITALS: O2SAT 99
[2024-03-13 07:24] LABS: CALCIUM, SERUM 9.2 mg/dL (8.5-10.1); CREATININE 3.5 mg/dL (0.6-1.3); POTASSIUM 3.7 mmol/L (3.5-5.1)
[2024-03-13 08:00] VITALS: BP 145/77; TEMP 98.5; O2SAT 98
[2024-03-13 08:40] LABS: BASOPHILS # (AUTO) 0.1 K/uL (0.0-0.2); BASOPHILS % (AUTO) 0.8 % (0.0-2.0); EOSINOPHILS # (AUTO) 1.8 K/uL (0.0-0.7); EOSINOPHILS % (AUTO) 16.1 % (0.0-6.0); HEMATOCRIT 29 % (39-51); HEMOGLOBIN 9.5 g/dL (13.5-17.5); LYMPHOCYTES # (AUTO) 1.8 K/uL (0.8-4.8); LYMPHOCYTES % (AUTO) 16.2 % (20.0-44.0); MEAN CORPUSCULAR HEMOGLOBIN 31 PG (26.0-33.0); MEAN CORPUSCULAR HGB CONC 33 g/dl (31.0-36.0); MEAN CORPUSCULAR VOLUME 93 fL (80-96); MONOCYTES # (AUTO) 0.8 K/uL (0.1-1.30); MONOCYTES % (AUTO) 7.6 % (2.0-12.0); NEUTROPHILS # (AUTO) 6.4 K/uL (1.8-8.9); NEUTROPHILS % (AUTO) 59.3 % (43.0-81.0); PLATELET COUNT (AUTO) 266 K/uL (150-450); RED CELL DISTRIBUTION WIDTH 18.7 % (11.5-15.0); WHITE BLOOD COUNT (AUTO) 10.9 K/uL (4.3-11.0)
[2024-03-13] MEDS: D5W IV ONE (10:53)
[2024-03-13] MEDS: GENTAMICIN IV ONE (10:53)
[2024-03-13 16:00] VITALS: BP 115/82; TEMP 98.3; O2SAT 98
[2024-03-13] MEDS: VANCOMYCIN POST DIALYSIS 500MG IV PRN (18:17)
[2024-03-13 20:00] VITALS: BP 117/71; TEMP 97.9; O2SAT 100
[2024-03-14 07:22] LABS: CREATININE 2.6 mg/dL (0.6-1.3); POTASSIUM 3.4 mmol/L (3.5-5.1)
[2024-03-14 08:00] VITALS: BP 146/79; TEMP 97.9; O2SAT 99
[2024-03-14 08:15] LABS: GENTAMICIN,TROUGH 2.2 ug/ml (0.2-2.0)
[2024-03-14] MEDS: POTASSIUM CHLORIDE 20 MEQ POWDER PACKET PO ONE (10:28)
[2024-03-14 16:00] VITALS: BP 147/79; TEMP 98.6; O2SAT 100
[2024-03-15 02:22] VITALS: BP 135/80; TEMP 97.9; O2SAT 100
[2024-03-15 07:11] LABS: CALCIUM, SERUM 9.8 mg/dL (8.5-10.1); CREATININE 3.7 mg/dL (0.6-1.3)
[2024-03-15 08:33] VITALS: O2SAT 98
[2024-03-15 08:39] VITALS: BP 130/82; TEMP 98.1; O2SAT 99
[2024-03-15 16:08] VITALS: BP_SYST 132; BP_SYST 137; BP_DIAS 73; TEMP 98.2; O2SAT 100
[2024-03-15] MEDS: GENTAMICIN 80 MG in IV D5W 50 ML IV PRN (20:23)
[2024-03-15 23:43] VITALS: BP 118/76; TEMP 98.1; O2SAT 98
[2024-03-16 09:23] VITALS: BP 143/76; TEMP 98.1; O2SAT 100
[2024-03-16 11:42] LABS: CALCIUM, SERUM 9.8 mg/dL (8.5-10.1); CREATININE 3.1 mg/dL (0.6-1.3); POTASSIUM 3.6 mmol/L (3.5-5.1)
[2024-03-16 11:49] LABS: GENTAMICIN,RANDOM 5.4 ug/ml (4.0-8.0)
== END 2024-03-16 16:00 | DRG 673 ==
LOC: MED 03-07 01:30
PROVIDERS: ADMIT Nurse Practitioner Family; ATTEND Internal Medicine
PROC: 5A1D70Z Performance of Urinary Filtration, Intermittent, Less than 6 Hours Per Day (ICD-10-PCS; principal; 2024-03-07)
PROC: 0JH63XZ Insertion of Tunneled Vascular Access Device into Chest Subcutaneous Tissue and Fascia, Percutaneous Approach (ICD-10-PCS; 2024-03-07)
PROC: 05HM33Z Insertion of Infusion Device into Right Internal Jugular Vein, Percutaneous Approach (ICD-10-PCS; 2024-03-07)
PROC: B513YZA Fluoroscopy of Right Jugular Veins using Other Contrast, Guidance (ICD-10-PCS; 2024-03-07)
DX: T82.41XA Breakdown (mechanical) of vascular dialysis catheter, initial encounter (principal); G93.41 Metabolic encephalopathy; N39.0 Urinary tract infection, site not specified; I12.0 Hypertensive chronic kidney disease with stage 5 chronic kidney disease or end stage renal disease; M46.20 Osteomyelitis of vertebra, site unspecified; N18.6 End stage renal disease; Y71.2 Prosthetic and other implants, materials and accessory cardiovascular devices associated with adverse incidents; E11.22 Type 2 diabetes mellitus with diabetic chronic kidney disease; Z99.2 Dependence on renal dialysis; Y92.129 Unspecified place in nursing home as the place of occurrence of the external cause; D63.8 Anemia in other chronic diseases classified elsewhere; E78.5 Hyperlipidemia, unspecified; E87.6 Hypokalemia; M81.0 Age-related osteoporosis without current pathological fracture; E11.69 Type 2 diabetes mellitus with other specified complication; Z86.73 Personal history of transient ischemic attack (TIA), and cerebral infarction without residual deficits; N40.0 Benign prostatic hyperplasia without lower urinary tract symptoms; F03.90 Unspecified dementia, unspecified severity, without behavioral disturbance, psychotic disturbance, mood disturbance, and anxiety; S31.000A Unspecified open wound of lower back and pelvis without penetration into retroperitoneum, initial encounter; X58.XXXA Exposure to other specified factors, initial encounter; Z78.1 Physical restraint status; Z79.82 Long term (current) use of aspirin; Z79.899 Other long term (current) drug therapy; Z79.4 Long term (current) use of insulin; Z79.51 Long term (current) use of inhaled steroids
CPT/HCPCS: 36415; 70450-TC; 71045-TC; 80048-TC; 80170-TC; 80202-TC; 81001; 82607-TC; 82962-TC; 83735-TC; 83921; 84100-TC; 84425; 84443-TC; 85025-TC; 85610-TC; 85730-TC; 87040-TC; 87081-TC; 87086-TC; 90935-TC; 94761-TC; 94799-TC; 95819-TC; A4223; A6253; C1750; C1769; C1894; G0378; J0692; J1100; J1580; J1644; J1815; J2405; J2704; J2765; J3370; J3490; J7030; J7060

== ENCOUNTER 2024-03-22 15:53 | Emergency (ER) | payer MEDICARE, OTHER ==
[~2024-03-22] VITALS: Ht 167.6 cm; Wt 57.6 kg
[~2024-03-22 15:53] MED LIST changes: -ACET-73 PO; +ACET-868 PO; +ASPI-1169 PO; +ATOR80TA PO; +CEFE2VIA3 IV; -CEFT400V IV; +CETI10TA14 PO; +CHOL100043 PO; +HYDR-4303 PO; -NEOM1OIN15 TP; -OMEP20TA5 PO; -ONDA-97 PO; +PANT40TA2 PO; +VANC500V IV
[2024-03-22 16:50] LABS: BASOPHILS # (AUTO) 0.1 K/uL (0.0-0.2); BASOPHILS % (AUTO) 0.7 % (0.0-2.0); EOSINOPHILS # (AUTO) 1.4 K/uL (0.0-0.7); EOSINOPHILS % (AUTO) 16.9 % (0.0-6.0); HEMATOCRIT 29 % (39-51); HEMOGLOBIN 9.5 g/dL (13.5-17.5); LYMPHOCYTES # (AUTO) 1.5 K/uL (0.8-4.8); LYMPHOCYTES % (AUTO) 17.9 % (20.0-44.0); MEAN CORPUSCULAR HEMOGLOBIN 32 PG (26.0-33.0); MEAN CORPUSCULAR HGB CONC 33 g/dl (31.0-36.0); MEAN CORPUSCULAR VOLUME 96 fL (80-96); MONOCYTES # (AUTO) 0.7 K/uL (0.1-1.30); MONOCYTES % (AUTO) 7.9 % (2.0-12.0); NEUTROPHILS # (AUTO) 4.7 K/uL (1.8-8.9); NEUTROPHILS % (AUTO) 56.6 % (43.0-81.0); PLATELET COUNT (AUTO) 306 K/uL (150-450); RED BLOOD CELL COUNT(AUTO) 3.02 MIL/uL (4.5-6.0); RED CELL DISTRIBUTION WIDTH 18.3 % (11.5-15.0); WHITE BLOOD COUNT (AUTO) 8.3 K/uL (4.3-11.0)
[2024-03-22 16:59] LABS: CALCIUM, SERUM 8.7 mg/dL (8.5-10.1); POTASSIUM 3.7 mmol/L (3.5-5.1)
[2024-03-22 17:12] LABS: MAGNESIUM 1.9 mg/dL (1.8-2.4)
[2024-03-22 18:03] LABS: THYROID STIMULATING HORMONE 1.32 uIU/mL (0.358-3.74)
[2024-03-22 20:04] VITALS: BP 130/78; TEMP 98.3; O2SAT 100
== END 2024-03-22 20:05 | disposition home or self-care (01) ==
LOC: ER 15:57
DX: I12.0 Hypertensive chronic kidney disease with stage 5 chronic kidney disease or end stage renal disease (principal); E11.22 Type 2 diabetes mellitus with diabetic chronic kidney disease; N18.6 End stage renal disease; R53.1 Weakness; N40.0 Benign prostatic hyperplasia without lower urinary tract symptoms; Z79.82 Long term (current) use of aspirin; Z99.2 Dependence on renal dialysis; Z20.822 Contact with and (suspected) exposure to COVID-19
CPT/HCPCS: 36415; 71045-TC; 80048-TC; 83735-TC; 83880; 84439-TC; 84443-TC; 84484-TC; 85025-TC